=== PATIENT | female | born 1990 | race African-American/Black ===

== ENCOUNTER 2016-09-23 12:43 | Emergency (ER) | payer OTHER ==
[~2016-09-23] VITALS: Ht 165.1 cm; Wt 132.0 kg
[~2016-09-23 12:43] MED LIST: AUGMENTIN875 MG PO; ENDOCET 5-3251 EACH PO; GLYBURIDE2.5 MG PO; IBUPROFEN800 MG PO; METFORMIN HCL500 M4 PO; PRENATAL TABLE1 EAC3 PO
[2016-09-23] MEDS ORDERED: NORCO 5/3251 TABLET PO (13:19)
[2016-09-23] MEDS ORDERED: PEN-VEE K,VEET500 MG PO (13:19)
[2016-09-23 13:36] VITALS: BP 149/96
== END 2016-09-23 13:36 | disposition home or self-care (01) ==
LOC: EME 12:43
DX: K04.7 Periapical abscess without sinus (principal); K08.89 Other specified disorders of teeth and supporting structures
CPT/HCPCS: 99281; 99283

== ENCOUNTER 2016-11-02 02:39 | Emergency (ER) | payer OTHER ==
[~2016-11-02] VITALS: Ht 165.1 cm; Wt 136.4 kg
[~2016-11-02 02:39] MED LIST changes: +NORCO 5/3251 TABLET PO; +PEN-VEE K,VEET500 MG PO
[2016-11-02 03:05] LABS: ADD MIUA? YES; BILIRUBIN NEGATIVE; BLOOD SMALL; COLOR YELLOW ((YELLOW)); GLUCOSE (STRIP) NEGATIVE; KETONES NEGATIVE; LEUKOCYTES MODERATE; NITRITE POSITIVE; PROTEIN (STRIP) NEGATIVE; SPECIFIC GRAVITY 1.017 (1.000-1.030); UROBILINOGEN 0.2 MG/DL (0.2-1.0)
[2016-11-02 03:14] LABS: HEMATOCRIT 36.9 % (36.0-46.0); MCH 26.2 PG (29.0-34.0); MCV 81.8 FL (83-99); MEAN PLAT.VOLUME 9.6 uM^3 (9.5-12.4); PLATELET COUNT 301 K/uL (156-360); RBC DIS.WIDTH-CV 15.6 % (11.8-14.6); RBC DIS.WIDTH-SD 46.5 % (39-53); RED BLOOD COUNT 4.51 M/uL (3.80-5.20)
[2016-11-02 03:26] LABS: CHLORIDE 102 mEq/L (99-109); POTASSIUM 3.8 mEq/L (3.7-5.4); SODIUM 137 mEq/L (136-147)
[2016-11-02 03:29] LABS: GLUCOSE 189 mg/dL (70-99)
[2016-11-02 03:30] LABS: ANION GAP 11 MEQ/L (2-14)
[2016-11-02 03:31] LABS: TOTAL BILIRUBIN 0.2 mg/dL (0.0-1.0)
[2016-11-02 03:32] LABS: ALKALINE PHOSPHATASE 69 IU/L (3-129); GFR ESTIMATE (CALCULATED) > 59 mL/min/
[2016-11-02 03:34] LABS: UREA NITROGEN (BUN) 8 mg/dL (9-23)
[2016-11-02 03:35] LABS: BACTERIA 3+ /HPF; EPITHELIAL CELLS 2+ /HPF; MUCUS NONE SEEN /LPF; RED BLOOD CELLS 0-5 /HPF (0-5); UCUL ADDED? YES
[2016-11-02 03:41] LABS: QUANTITATIVE HCG < 4.0 MIU/ML
[2016-11-02] MEDS ORDERED: KEFLEX500 MG PO (05:07)
[2016-11-02] MEDS ORDERED: NORCO 5/3251 TABLET PO (05:08)
[2016-11-02 05:32] VITALS: BP 130/80
== END 2016-11-02 05:36 | disposition home or self-care (01) ==
LOC: EME 02:39
DX: N30.90 Cystitis, unspecified without hematuria (principal); R10.32 Left lower quadrant pain; Z90.49 Acquired absence of other specified parts of digestive tract
CPT/HCPCS: 74177; 80053; 81003; 84702; 85027; 87086; 99281; 99284; J0696; J2270; J2405; J7030; J7050

== ENCOUNTER 2017-06-23 05:22 | Emergency (ER) | payer OTHER ==
[~2017-06-23] VITALS: Ht 165.1 cm; Wt 136.5 kg
[~2017-06-23 05:22] MED LIST changes: +KEFLEX500 MG PO
[2017-06-23 07:28] LABS: HEMATOCRIT 36.5 % (36.0-46.0); MCH 26.6 PG (29.0-34.0); MCHC 32.6 G/DL (30.0-36.0); MCV 81.7 FL (83-99); MEAN PLAT.VOLUME 10.5 uM^3 (9.5-12.4); PLATELET COUNT 275 K/uL (156-360); RBC DIS.WIDTH-CV 15.3 % (11.8-14.6); RBC DIS.WIDTH-SD 45.4 % (39-53); RED BLOOD COUNT 4.47 M/uL (3.80-5.20); WHITE BLOOD COUNT 10.2 K/uL (4.1-10.2)
[2017-06-23 07:49] LABS: ALKALINE PHOSPHATASE 66 IU/L (3-129); ANION GAP 10 MEQ/L (2-14); CHLORIDE 100 MEQ/L (99-109); GFR ESTIMATE (CALCULATED) > 59 mL/min/; GLUCOSE 299 mg/dL (70-99); POTASSIUM 4.3 MEQ/L (3.7-5.4); SAMPLE HEMOLYSIS CHECK 0; SAMPLE ICTERIC CHECK 0; SAMPLE LIPEMIA CHECK 0; SODIUM 135 MEQ/L (136-147); TOTAL BILIRUBIN 0.4 MG/DL (0.0-1.0); UREA NITROGEN (BUN) 7 mg/dL (9-23)
[2017-06-23 07:55] LABS: QUANTITATIVE HCG < 4.0 MIU/ML
[2017-06-23 09:15] LABS: ADD MIUA? YES; BILIRUBIN NEGATIVE; BLOOD MODERATE; COLOR YELLOW ((YELLOW)); GLUCOSE (STRIP) >=500; KETONES NEGATIVE; LEUKOCYTES TRACE; NITRITE POSITIVE; PROTEIN (STRIP) NEGATIVE; SPECIFIC GRAVITY 1.013 (1.000-1.030); UROBILINOGEN 0.2 MG/DL (0.2-1.0)
[2017-06-23 09:26] LABS: BACTERIA NONE SEEN /HPF; EPITHELIAL CELLS RARE /HPF; MUCUS TRACE /LPF; RED BLOOD CELLS 15-20 /HPF (0-5); UCUL ADDED? NO; WHITE BLOOD CELLS 0-5 /HPF (0-5)
[2017-06-23] MEDS ORDERED: TYLENOL WITH C1 EACH PO (11:23)
[2017-06-23] MEDS ORDERED: CIPRO XR 500 M500 M1 PO (11:23)
[2017-06-23] MEDS ORDERED: CIPRO500 MG PO (11:25)
[2017-06-23 11:41] VITALS: BP 148/92
== END 2017-06-23 11:49 | disposition home or self-care (01) ==
LOC: EME 05:22
DX: N39.0 Urinary tract infection, site not specified (principal); R10.31 Right lower quadrant pain; E11.65 Type 2 diabetes mellitus with hyperglycemia; T38.3X6A Underdosing of insulin and oral hypoglycemic [antidiabetic] drugs, initial encounter; Z91.14 Patient's other noncompliance with medication regimen
CPT/HCPCS: 74177; 80053; 81003; 84702; 85027; 99281; 99285; J2270; J2405; J7030

== ENCOUNTER 2017-11-05 21:58 | Emergency (ER) | payer OTHER ==
[~2017-11-05] VITALS: Ht 165.1 cm; Wt 127.6 kg
[~2017-11-05 21:58] MED LIST changes: +CIPRO XR 500 M500 M1 PO; +CIPRO500 MG PO; +TYLENOL WITH C1 EACH PO
[2017-11-05 22:20] LABS: HEMATOCRIT 36.1 % (36.0-46.0); HEMOGLOBIN 11.5 G/DL (11.9-15.5); MCH 26.3 PG (29.0-34.0); MCHC 31.9 G/DL (30.0-36.0); MCV 82.6 FL (83-99); PLATELET COUNT 287 K/uL (156-360); RBC DIS.WIDTH-CV 16.1 % (11.8-14.6); RED BLOOD COUNT 4.37 M/uL (3.80-5.20)
[2017-11-05 22:31] LABS: ALBUMIN 4.5 g/dL (3.2-4.8)
[2017-11-05 22:32] LABS: CHLORIDE 107 mEq/L (99-109); POTASSIUM 3.6 mEq/L (3.7-5.4); SODIUM 142 mEq/L (136-147)
[2017-11-05 22:34] LABS: GLUCOSE 101 mg/dL (70-99); TOTAL PROTEIN 8.4 g/dL (6.4-8.3)
[2017-11-05 22:36] LABS: TOTAL BILIRUBIN 0.4 mg/dL (0.0-1.0)
[2017-11-05 22:37] LABS: ALKALINE PHOSPHATASE 78 IU/L (3-129)
[2017-11-05 22:38] LABS: CREATININE 0.8 mg/dL (0.6-1.3); GFR ESTIMATE (CALCULATED) > 59 mL/min/
[2017-11-05 22:39] LABS: AST (GOT) 62 IU/L (2-34); UREA NITROGEN (BUN) 10 mg/dL (9-23)
[2017-11-05 22:41] LABS: ALT (GPT) 63 IU/L (3-49)
[2017-11-05 22:47] LABS: QUANTITATIVE HCG < 4.0 MIU/ML
[2017-11-06 01:20] LABS: APPEARANCE CLEAR ((CLEAR)); BILIRUBIN NEGATIVE; BLOOD NEGATIVE; COLOR YELLOW ((YELLOW)); GLUCOSE (STRIP) NEGATIVE; KETONES NEGATIVE; LEUKOCYTES SMALL; NITRITE POSITIVE; PROTEIN (STRIP) NEGATIVE; SPECIFIC GRAVITY 1.024 (1.000-1.030); UROBILINOGEN 0.2 MG/DL (0.2-1.0)
[2017-11-06 01:23] LABS: BACTERIA 2+ /HPF; EPITHELIAL CELLS 1+ /HPF; MUCUS TRACE /LPF; RED BLOOD CELLS 0-5 /HPF (0-5); UCUL ADDED? YES
[2017-11-06 01:51] LABS: LIPASE 142 U/L (1.0-51.0)
[2017-11-06] MEDS ORDERED: KEFLEX500 MG PO (04:10)
[2017-11-06] MEDS ORDERED: ZOFRAN ODT8 MG PO (04:10)
[2017-11-06] MEDS ORDERED: BENTYL20 MG PO (04:10)
[2017-11-06 05:43] VITALS: BP 140/71
== END 2017-11-06 05:52 | disposition home or self-care (01) ==
LOC: EME 21:58
DX: R10.30 Lower abdominal pain, unspecified (principal); R11.2 Nausea with vomiting, unspecified; R19.7 Diarrhea, unspecified; N30.00 Acute cystitis without hematuria; B96.20 Unspecified Escherichia coli [E. coli] as the cause of diseases classified elsewhere; Z16.11 Resistance to penicillins; Z16.23 Resistance to quinolones and fluoroquinolones; K85.90 Acute pancreatitis without necrosis or infection, unspecified; R74.8 Abnormal levels of other serum enzymes; E11.9 Type 2 diabetes mellitus without complications; Z90.49 Acquired absence of other specified parts of digestive tract; Z91.040 Latex allergy status
CPT/HCPCS: 74177; 80053; 81003; 83690; 84702; 85027; 87077; 87086; 87186; 99281; 99284; J0696; J1885; J2405; J7030

== ENCOUNTER 2017-11-07 19:15 | Emergency (ER) | payer OTHER ==
[~2017-11-07] VITALS: Ht 165.1 cm; Wt 130.2 kg
[~2017-11-07 19:15] MED LIST changes: +BENTYL20 MG PO; +ZOFRAN ODT8 MG PO
[2017-11-07 19:33] LABS: HEMATOCRIT 34.8 % (36.0-46.0); HEMOGLOBIN 11.1 G/DL (11.9-15.5); MCH 26.6 PG (29.0-34.0); MCHC 31.9 G/DL (30.0-36.0); MCV 83.5 FL (83-99); PLATELET COUNT 270 K/uL (156-360); RBC DIS.WIDTH-CV 16.1 % (11.8-14.6); RBC DIS.WIDTH-SD 49.2 % (39-53); RED BLOOD COUNT 4.17 M/uL (3.80-5.20); WHITE BLOOD COUNT 6.1 K/uL (4.1-10.2)
[2017-11-07 20:03] LABS: ALBUMIN 4.2 G/DL (3.2-4.8); ALKALINE PHOSPHATASE 64 IU/L (3-129); ALT (GPT) 44 IU/L (3-49); AST (GOT) 31 IU/L (2-34); CHLORIDE 106 MEQ/L (99-109); CREATININE 0.7 MG/DL (0.6-1.3); DIRECT BILIRUBIN 0.1 mg/dL (0.0-0.3); GFR ESTIMATE (CALCULATED) > 59 mL/min/; GLUCOSE 125 mg/dL (70-99); POTASSIUM 3.8 MEQ/L (3.7-5.4); SODIUM 139 MEQ/L (136-147); TOTAL BILIRUBIN 0.2 MG/DL (0.0-1.0); TOTAL PROTEIN 7.4 G/DL (6.4-8.3); UREA NITROGEN (BUN) 8 mg/dL (9-23)
[2017-11-07 20:31] LABS: QUANTITATIVE HCG < 4.0 MIU/ML
[2017-11-07 21:31] LABS: LIPASE 180 U/L (1.0-51.0)
[2017-11-07 21:44] LABS: APPEARANCE CLEAR ((CLEAR)); BILIRUBIN NEGATIVE; BLOOD NEGATIVE; COLOR YELLOW ((YELLOW)); GLUCOSE (STRIP) NEGATIVE; KETONES NEGATIVE; LEUKOCYTES TRACE; NITRITE NEGATIVE; PROTEIN (STRIP) 30; SPECIFIC GRAVITY 1.023 (1.000-1.030); UROBILINOGEN 0.2 MG/DL (0.2-1.0)
[2017-11-07 21:47] LABS: BACTERIA NONE SEEN /HPF; EPITHELIAL CELLS RARE /HPF; MUCUS NONE SEEN /LPF; RED BLOOD CELLS 0-5 /HPF (0-5); UCUL ADDED? NO; WHITE BLOOD CELLS 0-5 /HPF (0-5)
[2017-11-07 22:58] VITALS: BP 135/85
== END 2017-11-07 22:59 | disposition home or self-care (01) ==
LOC: EME 19:15
DX: R10.11 Right upper quadrant pain (principal); K85.90 Acute pancreatitis without necrosis or infection, unspecified; E11.9 Type 2 diabetes mellitus without complications; Z90.49 Acquired absence of other specified parts of digestive tract; Z91.040 Latex allergy status
CPT/HCPCS: 80053; 81003; 82248; 83690; 84702; 85027; 99281; 99284

== ENCOUNTER 2017-12-29 12:12 | Emergency (ER) | payer OTHER ==
[~2017-12-29] VITALS: Ht 165.1 cm; Wt 127.0 kg
[2017-12-29] MEDS ORDERED: MOTRIN600 MG PO (13:07)
[2017-12-29] MEDS ORDERED: FLEXERIL10 MG PO (13:07)
[2017-12-29 13:27] VITALS: BP 135/102
== END 2017-12-29 13:28 | disposition home or self-care (01) ==
LOC: EME 12:12
DX: S16.1XXA Strain of muscle, fascia and tendon at neck level, initial encounter (principal); V49.50XA Passenger injured in collision with unspecified motor vehicles in traffic accident, initial encounter; Y92.410 Unspecified street and highway as the place of occurrence of the external cause; Z91.040 Latex allergy status
CPT/HCPCS: 99281; 99283

== ENCOUNTER 2018-02-21 11:26 | Emergency (ER) | payer OTHER ==
[~2018-02-21] VITALS: Ht 165.1 cm; Wt 125.3 kg
[~2018-02-21 11:26] MED LIST changes: +FLEXERIL10 MG PO; +MOTRIN600 MG PO
[2018-02-21 11:53] LABS: HEMATOCRIT 34.5 % (36.0-46.0); HEMOGLOBIN 11.1 G/DL (11.9-15.5); MCH 26.1 PG (29.0-34.0); MCHC 32.2 G/DL (30.0-36.0); PLATELET COUNT 329 K/uL (156-360); RBC DIS.WIDTH-CV 17.9 % (11.8-14.6); RED BLOOD COUNT 4.26 M/uL (3.80-5.20); WHITE BLOOD COUNT 9.3 K/uL (4.1-10.2)
[2018-02-21 12:04] LABS: CHLORIDE 105 mEq/L (99-109); SODIUM 139 mEq/L (136-147)
[2018-02-21 12:05] LABS: GLUCOSE 116 mg/dL (70-99)
[2018-02-21 12:09] LABS: CREATININE 0.8 mg/dL (0.6-1.3); GFR ESTIMATE (CALCULATED) > 59 mL/min/
[2018-02-21 12:10] LABS: UREA NITROGEN (BUN) 9 mg/dL (9-23)
[2018-02-21 13:10] LABS: QUANTITATIVE HCG < 4.0 MIU/ML
[2018-02-21 13:42] LABS: APPEARANCE CLEAR ((CLEAR)); BILIRUBIN NEGATIVE; BLOOD NEGATIVE; COLOR YELLOW ((YELLOW)); GLUCOSE (STRIP) NEGATIVE; KETONES NEGATIVE; LEUKOCYTES TRACE; NITRITE POSITIVE; PROTEIN (STRIP) NEGATIVE; SPECIFIC GRAVITY 1.009 (1.000-1.030); UROBILINOGEN 0.2 MG/DL (0.2-1.0)
[2018-02-21 13:44] LABS: BACTERIA RARE /HPF; EPITHELIAL CELLS 1+ /HPF; MUCUS TRACE /LPF; RED BLOOD CELLS 0-5 /HPF (0-5); UCUL ADDED? NO; WHITE BLOOD CELLS 0-5 /HPF (0-5)
[2018-02-21] MEDS ORDERED: BACTRIM,SEPT1 TABLET PO (14:10)
[2018-02-21] MEDS ORDERED: ANTIVERT25 MG PO (14:10)
[2018-02-21 14:20] VITALS: BP 113/73
== END 2018-02-21 14:20 | disposition home or self-care (01) ==
LOC: EME 11:26
DX: R42 Dizziness and giddiness (principal); N39.0 Urinary tract infection, site not specified; R11.2 Nausea with vomiting, unspecified; H93.11 Tinnitus, right ear; Z90.49 Acquired absence of other specified parts of digestive tract
CPT/HCPCS: 71046; 80048; 81003; 81025; 84702; 85027; 93005; 99281; 99284